=== PATIENT | female | born 1960 | race Caucasian/White ===

== ENCOUNTER 2023-05-04 14:22 | Outpatient (CLI) | payer OTHER, SELFPAY ==
--- NOTE | 2023-05-04 14:40 | MR_ITS ---
WS: [id number] MRI LUMBAR SPINE NONCONTRAST TECHNIQUE: Sagittal T1, T2 and STIR imaging. Axial T1 and T2 imaging. CLINICAL INFORMATION: L SIDE SCIATICA COMPARISON: None. FINDINGS: Mild lumbar curve. No acute compression. Disc bulging worse at L5-S1. L1-L2: Mild annular bulging with narrowing of the RIGHT subarticular recess. Mild facet arthropathy. Mild RIGHT foraminal narrowing. L2-L3: Mild annular bulging with slight narrowing of the RIGHT greater than LEFT subarticular recess. Moderate facet arthropathy. Mild RIGHT foraminal narrowing. L3-L4: Mild annular bulging. Narrowing of the LEFT subarticular recess. Mild central canal stenosis. Mild RIGHT foraminal narrowing. L4-L5: Mild annular bulging. Narrowing of the LEFT greater than RIGHT subarticular recess. Mild centr al canal stenosis. Moderate facet arthropathy. Mild bilateral foraminal narrowing. L5-S1: Central and LEFT paracentral disc protrusion. Impingement on the traversing LEFT greater than RIGHT S1 nerve roots. Moderate facet arthropathy. Mild LEFT foraminal narrowing. Tiny disc protrusion in the cervical spine at C5-6. Small RIGHT renal cyst. IMPRESSION: 1. Mild lumbar curve. No acute compression. 2. Mild central canal stenosis L3-L4 and L4-L5. 3. Central LEFT paracentral disc protrusion L5-S1 impinges the traversing LEFT S1 nerve root. Recomm end correlation LEFT S1 nerve root symptoms. 4. Narrowing of the RIGHT L1-2 and RIGHT L2-3 subarticular recess. 5. Small RIGHT foraminal protrusion L2-3 with mild RIGHT foraminal narrowing. 6. Mild RIGHT L3-4, LEFT L4-5, and LEFT L5-S1 foraminal narrowing. 7. Moderate facet arthropathy L3-L5.
== END 2023-05-04 14:23 | disposition home or self-care (01) ==
PROVIDERS: PCP Family Medicine; Visit Provider Family Medicine
DX: M54.32 Sciatica, left side (principal); M51.26 Other intervertebral disc displacement, lumbar region; M48.02 Spinal stenosis, cervical region; M48.061 Spinal stenosis, lumbar region without neurogenic claudication
CPT/HCPCS: 72148

== ENCOUNTER 2023-06-12 09:35 | Outpatient (CLI) | payer OTHER, SELFPAY ==
[2023-06-12 10:17] LABS: D Dimer 1.14 ug/mLFEU (0-0.59)
--- NOTE | 2023-06-12 14:14 | CT_ITS ---
WS: [id number] CT CHEST ANGIOGRAPHY WITH REFORMATS HISTORY: ELEVATED D DIMER TECHNIQUE: Contiguous axial images are obtained through the chest during arterial injection of intrav enous contrast. Images are reconstructed to evaluate the pulmonary arteries. MIP imaging also reviewe d. All CT scans at [facility] use at least one of these dose optimization techniques: automat ed exposure control; mA and/or kV adjustment per patient size (includes targeted exams where dose is matched to clinical indication); or iterative reconstruction. CONTRAST: Omnipaque 350; 100 mL IV. DLP: 441.59 mGy.cm COMPARISON: None available. Good opacification of the pulmonary arteries. No filling defects or pulmonary emboli are identified. Mild atherosclerosis aorta. No aneurysm. Moderate enlargement of the LEFT heart chambers. Mild tricuspid regurgitation into the IVC. There is mild hazy attenuation throughout the lungs. Lung volumes are decreased. Very small layering RIGHT pleural effusion. No mass or pneumonia. Although not enlarged there are several mediastinal and hilar lymph nodes along with mild edema within the mediastinal fat. Small hiatal hernia. Mildly contracted gallbladder. There is a small amount of edema adjacent to the gallbladder. Patient is not experiencing RIGHT upper quadrant pain. This may be related to patient's liver disease. Mild increase in thoracic kyphosis. No destructive bone lesions. IMPRESSION: 1. No pulmonary embolism. 2. Moderate LEFT heart enlargement with a small RIGHT pleural effusion. 3. Mild interstitial edema. Edema may be related to CHF. 4. Mildly contracted gallbladder with wall thickening and adjacent edema. Some of these changes may b e due to nonfasting patient or hepatocellular disease. In the correct clinical setting acute cholecys titis is not excluded. RIGHT upper quadrant ultrasound would provide additional information if clinic ally thought necessary. Notified DARREL Niño at 06/12/2023 3:49 PM.
== END 2023-06-12 09:36 | disposition home or self-care (01) ==
PROVIDERS: PCP Family Medicine; Visit Provider Nurse Practitioner Family
DX: R79.1 Abnormal coagulation profile (principal); R60.0 Localized edema; I51.7 Cardiomegaly; J90 Pleural effusion, not elsewhere classified; K82.9 Disease of gallbladder, unspecified
CPT/HCPCS: 71275; 85378

== ENCOUNTER 2023-06-22 07:04 | Outpatient (CLI) | payer OTHER, SELFPAY ==
--- NOTE | 2023-06-22 07:18 | USCV_ITS ---
Adri Ruth Age: 62 Gender: F : 1960 Exam Date: 06/22/2023 07:28 Ordering Phys: Shahid Rose MD Technologist: CRISTIAN [place] [facility] [place]: CHRONIC HEART FAILURE BP: 161 / 102 HR: 132 Rhythm: Sinus Technical Quality: Adequate MEASUREMENTS (Male / Female) Normal Values 2D ECHO LVOT Diameter 2.0 cm LV Ejection Fraction MOD 2C 24.0 % LV Ejection Fraction 2C AL 23.5 % LA Diameter 3.8 cm LA Width 3.3 cm LA Height 5.3 cm RA Width 3.8 cm RA Height 5.0 cm Aorta at Sinotubular Diameter 2.5 cm IVC Diameter 1.8 cm M-MODE Aortic Annulus Diameter 3.1 cm LA Ao Ratio MM 1.1 MV E Point Septal Separation 1.5 cm DOPPLER AV Peak Velocity 116.0 cm/s LVOT Peak Velocity 79.0 cm/s AV Area Cont Eq vti 2.4 cm squared AV Area Cont Eq pk 2.2 cm squared MV Peak Velocity 157.0 cm/s MV Area PHT 4.9 cm squared MV E' Velocity 93.8 cm/s Mitral E to MV E' Ratio 16.9 Mitral E to LV E' Lateral Ratio 13.1 Mitral E to LV E' Septal Ratio 24.2 TR Peak Velocity 249.4 cm/s TR Peak Gradient 24.9 mmHg TR Mean Velocity 214.2 cm/s TR Mean Gradient 19.0 mmHg TR Velocity Time Integral 75.5 cm TV Peak E Velocity 88.0 cm/s Right Atrial Pressure 3.0 mmHg Pulmonary Artery Systolic Pressu 27.9 mmHg PV Peak Velocity 71.0 cm/s RV Acceleration Time 0.1 s RV Ejection Time 0.2 s RV AcT/ET 0.2 FINDINGS Left Ventricle Mildly increased left ventricular cavity size. Normal left ventricular wall thickness. Moderately decreased left ventricular systolic function. Left ventricular ejection fraction is estimated at 35 %. Global left ventricular hypokinesis. Grade II/IV diastolic dysfunction, moderately elevated filling pressures. Right Ventricle Normal right ventricular size and systolic function. Normal right ventricular systolic pressure. Right Atrium Mildly increased right atrial size. Left Atrium Mildly increased left atrial size. Mitral Valve Structurally normal mitral valve. Moderate-severe mitral valve regurgitation. Aortic Valve Structurally normal aortic valve without significant sclerosis or stenosis. There is no aortic regurgitation. Tricuspid Valve Structurally normal tricuspid valve. Xbykwfpu-ea-xwscxg tricuspid valve regurgitation. Pulmonic Valve Pulmonic valve not well visualized. Mild pulmonary valve regurgitation. Pericardium Normal pericardium without effusion. Aorta Normal ascending aorta dimension. IVC The inferior vena cava appears normal. CONCLUSIONS Mildly increased left ventricular cavity size. Normal left ventricular wall thickness. Moderately decreased left ventricular systolic function. Left ventricular ejection fraction is estimated at 35 %. Global left ventricular hypokinesis. Grade II/IV diastolic dysfunction, moderately elevated filling pressures. Mildly increased right atrial size. Mildly increased left atrial size. Structurally normal mitral valve. Moderate-severe mitral valve regurgitation. Structurally normal tricuspid valve. Gnpwtsam-[id number]-walmcz tricuspid valve regurgitation. There are no prior echocardiogram studies to compare. Dr. Reagan Alaniz MD (Electronically Signed) Final Date: 22 June 2023 10:04 S
== END 2023-06-22 07:05 | disposition home or self-care (01) ==
LOC: RAD 07:06
PROVIDERS: PCP Family Medicine; Visit Provider Family Medicine
DX: I50.9 Heart failure, unspecified (principal); I51.89 Other ill-defined heart diseases; I34.0 Nonrheumatic mitral (valve) insufficiency; I07.1 Rheumatic tricuspid insufficiency
CPT/HCPCS: 93306; Q9967

== ENCOUNTER → 2023-08-16 12:05 | Outpatient (BNVA) | payer MEDICARE, SELFPAY | PROVIDERS: PCP Family Medicine; Referring Provider Family Medicine; Visit Provider Internal Medicine Cardiovascular Disease | DX: R06.02 Shortness of breath (principal); R07.9 Chest pain, unspecified; I25.5 Ischemic cardiomyopathy; I50.20 Unspecified systolic (congestive) heart failure; I42.9 Cardiomyopathy, unspecified; I50.22 Chronic systolic (congestive) heart failure; I10 Essential (primary) hypertension; F10.10 Alcohol abuse, uncomplicated; I34.0 Nonrheumatic mitral (valve) insufficiency; I07.1 Rheumatic tricuspid insufficiency | CPT/HCPCS: 36415; 80048; 83880; 93005; 99205 ==

== ENCOUNTER 2023-09-04 10:15 | Outpatient (CLI) | payer MEDICARE, SELFPAY ==
[2023-09-04 10:43] VITALS: BMI 29.1
--- NOTE | 2023-09-04 10:44 | ECG_ITS ---
[facility] Test Date: 2023-09-04 Pat Name: Adri Ruth Department: Room: Gender: Female Field Laboratory Operator: Isidra Dawson : 1960 Requested By: Margarita Cummings Order Number: [id number] Medina MD: Huang Sutton M.D. Interpretive Statements NAME OF STUDY: EXERCISE SESTAMIBI STRESS TEST INDICATION: [CHF, ] EXERCISE DATA: The patient was exercised by Faraz protocol. Baseline heart rate was 84 beats per minute. Baseline blood pressure was 162/114 millimeters of mercury. Target heart rate was 132 beats per minute. Maximum heart rate achieved was 136, which was 103 % of the target heart rate. Maximum blood pressure was 193/126 millimeters of mercury. Total exercise time was 4 minutes 57 seconds. Maximum METs achieved was 7. The reason for ending the test was completion of protocol. The patient complained of shortness of breath during the stress test, which then resolved at the end of the test. ELECTROCARDIOGRAM: BASELINE: Showed sinus rhythm, normal axis, no significant ST-T changes at the baseline noted. [] EXERCISE: At the peak exercise level, [] No significant ST-T changes suggestive of ischemia noted. PVCs are seen. Although patient did reach target heart rate however EKG shows maximum heart rate of 129 bpm which is 3 beats lower than target heart rate. [] RECOVERY: During the recovery period, heart rate dropped appropriately. No significant ST-T changes in the recovery suggestive of ischemia noted. [] CONCLUSION: 1. Exercise capacity fair. 2. Heart rate response was appropriate. 3. Blood pressure response was hypertensive. 4. Symptoms not suggestive of ischemia. 5. Electrocardiogram portion of the stress test was not suggestive of ischemia. However EKGs were obtained at 3 beats lower than target heart rate which reduces sensitivity of the test. 6. Nuclear scan will be documented separately. Electronically Signed On 09-10-2023 12:42:52 LABOR CONTRACT ANALYST by Huang Sutton M.D. [email or web address]
--- NOTE | 2023-09-04 10:45 | NMCV_ITS ---
NM ba perf SPECT r/s* [id number] Adri Ruth Age: 63 Gender: F : 1960 Exam Date: 09/04/2023 11:37 Ordering Phys: Margarita Cummings MD ([email or web address]) Technologist: GENA Erazo Exam Location: [facility] Indications: CORONARY ANGIOPLASTY STATUS STRESS TEST Please see separate stress test report in [facility] for full findings IMAGE PROTOCOL Rest/Stress 1 Exercise Day Radiopharmaceutical Dose (mCi) Administration Site Administered by Rest: Tc-99m 10.6 IV GENA Erazo Sestamibi Stress:Tc-99m 32.7 IV GENA Erazo Sestamibi Rest: 04-Sep-2023 60 Discovery 630 Stress: 04-Sep-2023 30 Discovery 630 Radiopharmaceutical was injected at 86 % maximum heart rate. Images obtained in supine and prone position. SPECT RESULTS Technical Quality: Excellent Raw Data Analysis: Normal Image Corrections: No attenuation or motion correction applied Summed Stress Score: 12 Summed Rest Score: 2 Summed Difference Score: 10 PERFUSION FINDINGS Moderate area of moderately decreased tracer uptake involving the mid anterolateral, inferolateral knee basal and mid inferolateral, mid anterolateral, and all the apical segments. Significant reversibility was noted in these regions at rest. FUNCTIONAL RESULTS (calculated via Gated SPECT) Stress Image LV EF (%): 29 Stress EDV (mL):162 TID: 1.04 Stress ESV (mL):115 FUNCTIONAL FINDINGS: Segmental wall motion analysis revealed severe diffuse hypokinesis the inferior wall, apex and moderate hypokinesia of the septum IMPRESSIONS 1. Myocardial perfusion imaging revealing moderate area of moderately decreased tracer uptake involving the inferolateral, anterolateral and apical regions with significant reversibility suggesting ischemia mostly in the distribution of the left circumflex artery and left and descending artery. 2. Diminished LV ejection fraction 29% 3. Multiple wall motion normalities as mentioned above 4. Moderately dilated LV cavity with an end-systolic volume of 115 mL No similar previous studies are available for comparison Dr Margarita Cummings MD FAC (Electronically Signed) Final Date: 04 September 2023 19:10 S
--- NOTE | 2023-09-04 12:37 | PC.NURSE ---
Physician Notified In recovery after exercise mibi BP 160's /120's and maintaining . Physician gave verbal orders to give 10mg IV hydralizine X 1 , december discharge once DBP <110 and instruct patient to take BP medications once home. Pt verbalized understanding.
[2023-09-04] MEDS: hyDRALAzine 20 mg/mL INJ 1 mL 10 MG IVP (12:39)
[2023-09-04 12:48] VITALS: BP 149/107; PULSE 103
--- NOTE | 2023-09-04 13:00 | USCV_ITS ---
Faraz Adri Age: 63 Gender: F : 1960 Exam Date: 09/04/2023 13:44 Ordering Phys: Margarita Cummings MD ([email or web address]) Technologist: JACE Exam Location: [facility] – [place] Indication: limited for Low EF BP: / HR: 94 Rhythm: Sinus Technical Quality: Adequate MEASUREMENTS (Male / Female) Normal Values 2D ECHO LV Diastolic Diameter PLAX 4.4 cm 4.2 - 5.9 / 3.9 - 5.3 cm LV Systolic Diameter PLAX 3.7 cm IVS Diastolic Thickness 1.5 cm 0.6 - 1.0 / 0.6 - 0.9 cm IVS Systolic Thickness 1.6 cm LVPW Diastolic Thickness 1.0 cm 0.6 - 1.0 / 0.6 - 0.9 cm LVPW Systolic Thickness 2.0 cm LVOT Diameter 2.2 cm LV Ejection Fraction 2D Teich 32.1 % LV Ejection Fraction MOD 2C 38.1 % LV Ejection Fraction 2C AL 35.5 % LA Diameter 3.8 cm LA Width 2.9 cm LA Height 4.8 cm RA Width 2.7 cm RA Height 4.6 cm Aorta at Sinotubular Diameter 3.1 cm IVC Diameter 1.6 cm M-MODE Aortic Annulus Diameter 3.5 cm LA Ao Ratio MM 1.0 MV E Point Septal Separation 2.0 cm FINDINGS Left Ventricle Diffuse hypokinesia of the left ventricle with ejection fraction of 35.5%. Mildly dilated LV cavity Right Ventricle Normal RV size and ejection fraction Right Atrium Normal size Left Atrium Mildly increased left atrial size. Mitral Valve Moderate mitral regurgitation Aortic Valve Trace of aortic regurgitation Tricuspid Valve No gross abnormalities noted Pulmonic Valve Pulmonic valve not well visualized. Pericardium No pericardial effusion. Aorta Normal aortic annulus size. IVC Inferior vena cava not visualized. CONCLUSIONS Diffuse hypokinesia of the left ventricle with ejection fraction of 35.5%. Mildly dilated LV cavity Mildly increased left atrial size. Trace of aortic regurgitation. Moderate mitral regurgitation. There is no pericardial effusion. There are no intracardiac masses. Compared to the study from 06/22/2023, there may not be significant change in the LV ejection fraction Dr Margarita Cummings MD [facility] (Electronically Signed) Final Date: 04 September 2023 19:16 S
== END 2023-09-04 10:16 | disposition home or self-care (01) ==
PROVIDERS: PCP Family Medicine; Visit Provider Internal Medicine Cardiovascular Disease
DX: I11.0 Hypertensive heart disease with heart failure (principal); I50.9 Heart failure, unspecified; R94.39 Abnormal result of other cardiovascular function study; Z98.61 Coronary angioplasty status
CPT/HCPCS: 36415; 78452; 93017; 93308; A9500; J0360

== ENCOUNTER 2023-09-21 15:11 | Outpatient (CLI) | payer MEDICARE, SELFPAY | END 2023-09-21 15:12 | disposition home or self-care (01) | LOC: LAB 15:13 | PROVIDERS: PCP Family Medicine; Visit Provider Internal Medicine | DX: I08.1 Rheumatic disorders of both mitral and tricuspid valves (principal); I42.9 Cardiomyopathy, unspecified; R58 Hemorrhage, not elsewhere classified | CPT/HCPCS: 36415; 80048; 85025; 85610 ==

== ENCOUNTER 2023-09-22 05:57 | Outpatient (CLI) | payer MEDICARE, SELFPAY ==
--- NOTE | 2023-09-22 06:00 | XACV_ITS ---
Exam Room: 2 Ht: 168 cm Wt: 82 kg BSA: 1.97 m2 Gender: Female : 1960 Any Known Allergies: No known allergies Exam Priority: Routine Procedure(s): Procedure Description: Diagnostic procedure Procedure Description: Left Heart Catheterization Procedure Description: Left ventriculography Procedure Description: Coronary Angiography Diagnostic Cath Status: Elective Diagnostic Findings * INDICATION: LV dysfunction/abnormal stress test. * No significant disease noted in the Left Main, Left Anterior Descending, Right, or Circumflex coronary arteries. * Coronary angiography shows right dominance. Conclusions 1. No significant disease noted in the Left Main, Left Anterior Descending, Right, or Circumflex coronary arteries. 2. Non-ischemic cardiomyopathy. 3. Moderate left ventricular systolic dysfunction. Ejection fraction of 35%. Recommendations * Aggressive risk factor modification. * Guideline directed medical therapy for heart failure. * Outpatient cardiology follow up in 2-4 weeks. Interventional RX Recommendation: medical therapy and/or counseling Diagnostic RX Recommendation: medical therapy and/or counseling Ventriculography Ejection Fraction: 35.0 % Pressures Phase:Rest AO : 157 / 98 ( 120 ) @ 8:00:00 AM 192 / 85 ( 116 ) @ 8:03:00 AM 145 / 80 ( 106 ) @ 8:07:00 AM 146 / 79 ( 107 ) @ 8:07:00 AM LV : 151 / 4 / 15 @ 8:06:00 AM 152 / 5 / 21 @ 8:07:00 AM 151 / 6 / 20 @ 8:07:00 AM Valves Phase:DefaultPhase AV : 6.0 @ 8:18:31 AM 6.0 @ 8:18:31 AM AV Mean Gradient: 11.0 @ 8:18:31 AM Clinical Evaluation EBL: 5mL-10mL Procedural Details Procedure Consent Obtained. Admit Source: Out Patient. Pre-Procedure Time Out. Identified patient by full name and date of as verbalized by the patient/guarantor. Does the consent match the physician's order: Yes. Accurate & Complete Informed Consent: Yes. Inpatient/Outpatient History & Physical on Chart: Yes. If H&P is completed, is and addenduem needed: Yes; If yes, is the addendum complete: N/A. Visualize and Verify Site with Patient/Guarantor: N/A. Relevant Radiology Images available: N/A. The risks, benefits, and alternatives of sedation and/or procedure were discussed by physician. The patient agrees to continue. Procedure started. [facility] Clinical Fraility Score: 3: Managing Well. 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 Correct patient, site and procedure confirmed by cath team. Current diagnosis: LV dysfunction, abnormal stress test. PERRLA. Strong, equal hand casino assistant manager bilaterally. Lungs clear x 5 lobes. IV Site on Arrival: 20 gauge in the right forearm. IV Fluids: 0.9% NaCl at 75ml/hr. 0 mL infused prior to engineering lab technician. Pre Procedural Pulses: bilateral dorsalis pedis was Doppled. Pre Procedural Pulses: bilateral posterior tibial was 2+. Pre Procedural Pulses: bilateral radial was 3+. Oxygen started at 2liters/min via nasal canula. right radial was prepped with chloroprep then draped in the usual sterile fashion. right groin was prepped with chloroprep then draped in the usual sterile fashion. Physician notified. Baseline sample Acquired. HR: 73 BPM. Physician arrived. Physician scrubbed in. Immediate Pre-Procedure Time Out. Correct Patient: Yes; Correct Procedure: Yes; Correct Site: Yes; Correct Patient Position: Yes; Correct Supplies: Yes; Dried Flammable Prep: Yes; Blood Products Available: No;. Lidocaine 1% infiltrated to the right radial. An attempt to gain access to the right radial artery was unsuccessful. Manual pressure was held as needed to stop the bleeding. Ultrasound obtained to assist with arterial access. An attempt to gain access to the right radial artery was unsuccessful. Manual pressure was held as needed to stop the bleeding. Unable to obtain radial access. attempting to gain access in the Femoral artery. Lidocaine 1% infiltrated to the right groin. Arterial access obtained with micropuncture set. A 5 senegalese JL4 catheter in over wire. Multiple views taken of left coronary artery. Catheter removed over the standard wire. A 5 senegalese JR4 catheter in over wire. Multiple views taken of right coronary artery. Catheter removed over the standard wire. A 5 senegalese Angled Pig catheter in over wire. EDP Sample taken: LV 151/4,15; HR: 67 BPM; SpO2: 100%. LV gram performed in LOPEZ @ 10 mL/second for a total of 30 mL. EDP Sample taken: LV 152/5,21; HR: 71 BPM; SpO2: 100%. Pullback taken: LV 151/6,20; AO 145/80(106); Mean: 11mmHg, Peak to Peak: 6mmHg, SEP: 19sec/min; HR: 69 BPM; SpO2: 100%. Catheter removed over the standard wire. A Right femoral angiogram was performed to determine safe placement of closure device. Lidocaine 1% infiltrated to the right groin. A Angio-Seal VIP ([facility] [facility]) was successful obtaining hemostatsis at the Right Femoral artery insertion site. EXP 03-29-2024 LOT # [id number]. Post Procedure: Pulses reassessed and unchanged. PERRLA. Strong, equal hand casino assistant manager bilaterally. No VTE prophylaxis required. Medication's Wasted: Lidocaine 1% = 4 mL. Medication's Wasted: Nitro = 50 mg. Medication's Wasted: Heparin = 1000 units. Medication's Wasted: Other = Fentanyl 50mcg Versed 1 mg. Total IV fluids: 50 mL. Post-op diagnosis: Non-ischemic cardiomyopathy, Non obstructive CAD. Complications: None. Estimated blood loss: 5mL-10mL. Responsiveness - Normal response to verbal stimuli; alert and oriented, PERRLA. Airway - Unaffected, no intervention required; spontaneous ventilation. Circulation: W/N/L, pulses unchanged. Nausea/Vomiting: No. Procedure completed. Patient transferred by bed to CPRU. Vital chart was stopped. Access Site Site: Right Femoral artery Sheath Size: 6 Fr Hemostasis Method: Angio-Seal VIP ([facility] [facility]) Hemostasis Success: Successful Procedure Medications Start: 7:38 AM Stop: 7:38 AM Medication: Versed Amount: 1 mg Route: I.V. Start: 7:39 AM Stop: 7:39 AM Medication: Fentanyl Amount: 25 mcg Route: I.V. Start: 7:53 AM Stop: 7:53 AM Medication: Fentanyl Amount: 25 mcg Route: I.V. I, the attending physician, have reviewed and verified all procedure medications. Yes, all medications given per verbal order History/Risk Factors Hypertension: Yes Dyslipidemia: No Peripheral Arterial Disease (PAD): No Myocardial Infarction (VT): No Obesity: No Renal Disease: No Tobacco Use: Never Prior Interventions PCI: No CABG: No Valve Surgery: No Report Signatures Finalized by Huang Sutton MD on 10/01/2023 11:01 AM
[2023-09-22] MEDS: diphenhydrAMINE 50 mg Capsule PO (06:11)
[2023-09-22] MEDS: aspirin 325 mg Tablet PO (06:11)
[2023-09-22 06:29] VITALS: BP 155/109; PULSE 72; RESP 16; TEMP 37; O2SAT 97
--- NOTE | 2023-09-22 07:28 | W.PM.OPSFHP ---
Same Day Surgery H&P Indication for Procedure/HPI DATE OF PROCEDURE: September 22, 2023 CHIEF COMPLAINT/INDICATIONFOR SURGICAL PROCEDURE: LV dysfunction/abnormal stress test PREOP DIAGNOSIS: LV dysfunction/abnormal stress test PLANNED PROCEDURE: Operation Date: 09/22/23 07:[address] [facility] [id number],R94.39(Left) - Huang Sutton M.D Possible percutaneous coronary intervention 63-year-old woman with past medical history of alcohol use, mitral regurgitation who has recently discovered LV dysfunction. She was admitted in [place] for a CHF exacerbation. Her LV systolic function is moderate to severely low with EF of 35%. Stress test was performed that was abnormal. Plan for coronary angiogram with possible PCI. Medications/Allergies* Home Medications Medication Instructions Recorded Confirmed Type furosemide 40 mg tablet (Lasix) 40 mg PO DAILY 08/16/23 09/20/23 History potassium chloride 20 mEq 20 meq PO DAILY 08/16/23 09/20/23 History tablet,extended release Allergies/Adverse Reactions Allergy/AdvReac Type Severity Reaction Status Date / Time No Known Allergies Allergy Verified 09/22/23 06:39 Current Medications: Generic Name Dose Route Start Last Admin Trade Name Freq PRN Reason Stop Dose Admin Sodium Chloride 1,000 mls @ 50 mls/hr 09/22/23 06:00 09/22/23 06:11 Sodium Chloride 0.9% IV 09/23/23 01:59 Not Given .Q20H ONE Pertinent History/Comorbid Conditions* Medical History (Updated 08/16/23 @ 12:45 by Margarita Cummings MD) Hx of primary hypertension Social History Smoking and tobacco/nicotine status: never used tobacco/nicotine Pertinent Exam Findings alert, oriented x 3, clear to auscultation bilaterally and regular rate & rhythm Conscious Sedation Assessment PATIENT ASSESSED PRIOR TO SEDATION, WITH NO CHANGE NOTED: Yes AIRWAY EVAL/ANESTHESIA PLAN: normal airway, ASA III, Local Anesthesia, Risks, benefits & alternatives of sedation and/or procedure discussed and Patient agrees to continue as planned ADDITIONAL INFORMATION: Moderate sedation Recommendations Surgery/Procedure today (Left heart cath with percutaneous coronary intervention) Coding Level of Care Code Acute Code for Alina Fwd
[2023-09-22 08:20] VITALS: BP 149/95; PULSE 67; RESP 13; O2SAT 97
--- NOTE | 2023-09-22 08:20 | SUR.EXTENDED ---
Received the patient back from the laborer pie bakery via bed s/p Diagnostic [facility]. Patient drowsy. Awakens to verbal stimuli. A & 0 x 3. supervisor phosphoric acid placed and vital signs obtained. 6 Yi sheath sutured in the right groin to pressure bag. No bleeding or hematoma noted. Dressing D/I. No other assessment changes noted from pre cath assessment. Will transfer to room [ ] after recovery. Family at bedside. No concerns voiced at this time.
--- NOTE | 2023-09-22 08:20 | SUR.EXTENDED ---
Received the patient back from the open hearth laborer via bed s/p Diagnostic [facility]. Patient drowsy. Awakens to verbal stimuli. A & 0 x 3. cylinder dyer placed and vital signs obtained. Patient s/p Angioseal closure device. Dressing to right groin dry and intact. No bleeding or hematoma noted. The right wrist was accessed but unable to use. A pressure dressing was applied in the open hearth laborer. This dressing was taken off and the area was cleansed with water and patted dry. Then a large band aid was applied to the site. Wrist soft with no bleeding or hematoma noted. Palpable radial pulse present. Post activity restrictions were given to the patient with her understanding voiced. No other assessment changes noted from pre cath assessment. Will transfer to room 106 after recovery. Family at bedside. No concerns voiced at this time. Report was called to the receiving nurse by James Mcmanus RN.
[2023-09-22 08:30] VITALS: BP 139/90; PULSE 75; RESP 18; O2SAT 93
--- NOTE | 2023-09-22 09:09 | PC.NURSE ---
Patient arrived to [facility] from [facility] at 0900. Patient is alert and oriented. Patient is resting in bed. R groin site looks good, clean dry and intact. Right wrist where first attempt was made also looks good. No hematoma or bleeding present at this time. Nurse will continue to monitor. Patient is aware of activity restrictions and bed rest until 1230.
[2023-09-22 10:18] VITALS: BP 156/94; PULSE 81; RESP 17; TEMP 36.4; O2SAT 90
[2023-09-22 13:14] VITALS: BP 156/94; PULSE 81; RESP 17; TEMP 36.4; O2SAT 90
== END 2023-09-22 13:14 | disposition home or self-care (01) ==
LOC: CCL 06:00 → CSU 09:21
PROVIDERS: PCP Family Medicine; Visit Provider Internal Medicine
DX: R94.39 Abnormal result of other cardiovascular function study (principal); I42.9 Cardiomyopathy, unspecified; I10 Essential (primary) hypertension; I50.1 Left ventricular failure, unspecified
CPT/HCPCS: 93458; 99152; 99153; C1760; C1769; C1887; C1894; G0378; J1644; J2250; J3010; J3490; J7030; Q0163; Q9967

== ENCOUNTER → 2023-10-19 08:52 | Outpatient (BNVA) | payer MEDICARE, SELFPAY | PROVIDERS: PCP Family Medicine; Visit Provider Nurse Practitioner Family | DX: I11.0 Hypertensive heart disease with heart failure (principal); I50.22 Chronic systolic (congestive) heart failure; I34.0 Nonrheumatic mitral (valve) insufficiency | CPT/HCPCS: 36415; 80048; 83880; 99214 ==

== ENCOUNTER 2024-01-22 11:42 | Outpatient (CLI) | payer MEDICARE, SELFPAY ==
--- NOTE | 2024-01-22 12:00 | USCV_ITS ---
Adri Ruth Age: 63 Gender: F : 1960 Exam Date: 01/22/2024 12:00 Ordering Phys: Olivia Aviles Technologist: CT [place] [facility] [place]ication: CHRONIC HEART FAILURE BP: 142 / 93 HR: 70 Rhythm: Sinus Technical Quality: Adequate MEASUREMENTS (Male / Female) Normal Values 2D ECHO LVOT Diameter 2.0 cm LV Ejection Fraction MOD 2C 56.2 % LV Ejection Fraction 2C AL 61.0 % LA Diameter 4.3 cm RA Systolic Volume 4C AL 30.0 ml RA Systolic Volume 4C MOD 28.7 ml LA Sys Volume AL 44.3 cm cubed LA Sys Volume Index AL 22.5 cm cubed/m squared Aorta at Sinotubular Diameter 2.6 cm IVC Diameter 1.9 cm M-MODE LA Ao Ratio MM 1.8 AV Cusp Separation MM 2.0 cm DOPPLER AV Peak Velocity 116.0 cm/s LVOT Peak Velocity 74.0 cm/s AV Area Cont Eq vti 2.3 cm squared AV Area Cont Eq pk 2.1 cm squared MV Peak Velocity 109.0 cm/s MV Area PHT 3.7 cm squared Mitral E to A Ratio 0.5 TR Peak Velocity 98.0 cm/s TR Peak Gradient 3.8 mmHg TV Peak E Velocity 63.0 cm/s Right Atrial Pressure 3.0 mmHg Pulmonary Artery Systolic Pressu 6.8 mmHg PV Peak Velocity 83.0 cm/s FINDINGS Left Ventricle Normal left ventricular size, systolic function and wall thickness, with no regional wall motion abnormalities. Normal left ventricular wall thickness. Left ventricular ejection fraction is estimated at 60 %. Grade I/IV diastolic dysfunction (abnormal relaxation filling pattern), normal to mildly elevated filling pressures. Right Ventricle The right ventricle is normal in size and function. Right Atrium The right atrium is normal in size. Left Atrium Mildly increased left atrial size. Mitral Valve Moderately thickened mitral valve. Moderate mitral valve regurgitation. Aortic Valve Moderate aortic valve calcification. No aortic valve stenosis. Trace aortic valve regurgitation. Tricuspid Valve Structurally normal tricuspid valve without significant stenosis or regurgitation. Pulmonary artery systolic pressure is normal. Pulmonic Valve Structurally normal pulmonic valve without significant stenosis. There is no pulmonic regurgitation. Pericardium Normal pericardium without effusion. Aorta Normal ascending aorta dimension. IVC The inferior vena cava appears normal. CONCLUSIONS 1-Normal left ventricular size, systolic function and wall thickness, with no regional wall motion abnormalities. Normal left ventricular wall thickness. Left ventricular ejection fraction is estimated at 60 %. Grade I/IV diastolic dysfunction (abnormal relaxation filling pattern), normal to mildly elevated filling pressures. 2-Moderately thickened mitral valve. Moderate mitral valve regurgitation. 3-There is no pericardial effusion. 4-Right atrial pressure is around 5 mm of mercury. Bindu Chang MD (Electronically Signed) Final Date: 23 January 2024 19:04 S
== END 2024-01-22 11:43 | disposition home or self-care (01) ==
LOC: RAD 11:43
PROVIDERS: PCP Family Medicine; Visit Provider Nurse Practitioner Family
DX: I34.0 Nonrheumatic mitral (valve) insufficiency (principal); I50.22 Chronic systolic (congestive) heart failure; I70.0 Atherosclerosis of aorta
CPT/HCPCS: 93306

== ENCOUNTER → 2024-06-11 14:00 | Outpatient (BNVA) | payer MEDICARE, SELFPAY | PROVIDERS: PCP Family Medicine; Visit Provider Internal Medicine Cardiovascular Disease | DX: R06.02 Shortness of breath (principal); I42.9 Cardiomyopathy, unspecified; I11.0 Hypertensive heart disease with heart failure; I50.22 Chronic systolic (congestive) heart failure; I08.1 Rheumatic disorders of both mitral and tricuspid valves | CPT/HCPCS: 99214 ==

== ENCOUNTER 2024-09-10 10:21 | Outpatient (CLI) | payer MEDICARE, SELFPAY ==
--- NOTE | 2024-09-10 10:35 | CTR_ITS ---
PROCEDURE INFORMATION: Exam: CT Temporal Bones Without Contrast. Exam date and time: 09/10/2024 10:37 AM Age: 64 years old Clinical indication: Condition or disease; Prior surgery; Surgery date: 6+ months; Other benign neoplasm skin/left ear and external auric canal, had a hole in left ear fix 20 years ago TECHNIQUE: Imaging protocol: Computed tomography of the temporal bones without contrast. Radiation optimization: All CT scans at this facility use at least one of these dose optimization techniques: automated exposure control; mA and/or kV adjustment per patient size (includes targeted exams where dose is matched to clinical indication); or iterative reconstruction. COMPARISON: No relevant prior studies available. RADIATION DOSE METRICS: Total DLP (mGy-cm): 336.19 FINDINGS: Right inner ear: There is sclerosis of the right semicircular canal and cochlea Right ossicles and middle ear: Complete opacification of the right middle ear cavity. . Right external auditory canal: Normal. Right facial nerve canal: Normal. Right jugular foramen: No jugular dehiscence. Right carotid canal: No aberrant carotid canal. Right mastoid air cells: Under pneumatization of the mastoid air cells. Left inner ear: There is sclerosis of the semicircular canals and cochlea Left ossicles and middle ear: Postop resection change of the left external auditory canal and middle ear cavity. Left external auditory canal: Post resection change with soft tissue density Left facial nerve canal: Normal. Left jugular foramen: No jugular dehiscence. Left carotid canal: No aberrant carotid canal. Left mastoid air cells: Under pneumatization. Soft tissues: Unremarkable. CT/CT temporal bone wo con* [id number] IMPRESSION: 1. Postop surgical resection changes in the left external auditory canal and middle ear cavity. Soft tissue density resides within the resection site. 2. Retraction of the tympanic membrane with near complete opacification of the right middle ear cavity. Sclerosis of the right semicircular canals and cochlea.
== END 2024-09-10 10:22 | disposition home or self-care (01) ==
LOC: RAD 10:28
PROVIDERS: PCP Family Medicine; Visit Provider Otolaryngology
DX: D23.22 Other benign neoplasm of skin of left ear and external auricular canal (principal); H91.93 Unspecified hearing loss, bilateral; Z98.890 Other specified postprocedural states; R93.89 Abnormal findings on diagnostic imaging of other specified body structures
CPT/HCPCS: 70480

== ENCOUNTER → 2024-12-04 13:51 | Outpatient (BNVA) | payer MEDICARE, SELFPAY | PROVIDERS: PCP Family Medicine; Visit Provider Podiatrist Foot & Ankle Surgery | DX: L60.3 Nail dystrophy (principal); Z86.19 Personal history of other infectious and parasitic diseases | CPT/HCPCS: 99204 ==

== ENCOUNTER → 2025-02-19 13:14 | Outpatient (BNVA) | payer MEDICARE, SELFPAY | PROVIDERS: PCP Nurse Practitioner Family; Visit Provider Specialist | DX: M65.342 Trigger finger, left ring finger (principal) | CPT/HCPCS: 73130; 99204 ==

== ENCOUNTER 2025-03-11 16:10 | Outpatient (CLI) | payer MEDICARE, SELFPAY ==
[2025-03-11 17:16] LABS: Glucose Urine UA Negative (Normal); Nitrate Urine Positive (Negative); Specific Gravity, Urine 1.024 (1.005-1.030)
[2025-03-11 17:17] LABS: Hematocrit 44.6 % (36-47); Hemoglobin 14.50 g/dL (11.27-16.99); Mean Corpuscular HGB Conc 32.5 g/dL (30-55); Mean Corpuscular Hemoglobin 29.7 pg (27-33); Mean Corpuscular Volume 91.4 fl (85-98); Nucleated Red Blood Cells % 0 %; Platelet Count 240 10^3/cmm (157-399); Red Blood Count 4.88 10^6/uL (3.85-5.65); White Blood Count 7.62 10^3/uL (3.29-11.43)
[2025-03-11 17:19] LABS: Add Urine Microscopic? YES
[2025-03-11 18:09] LABS: Alanine Aminotransferase 9 U/L (0-33); Albumin Level 4.1 g/dL (3.5-5.2); Alkaline Phosphatase 101 U/L (35-105); Anion Gap 16.8 (5-19); Aspartate Amino Transferase 12 U/L (0-32); Blood Urea Nitrogen 16 mg/dL (8-23); Calcium 9.1 mg/dL (8.5-10.5); Carbon Dioxide 22 mmol/L (22-29); Chloride 108 mmol/L (98-107); Globulin 3.1 g/dL (1.3-4.6); Glucose 104 mg/dL (65-115); Osmolality Calculated 297 mOsm/kg (285-295); Potassium 3.8 mmol/L (3.5-5.1); Sodium 143 mmol/L (136-145); Total Protein 7.2 g/dL (6.6-8.7)
== END 2025-03-11 16:11 | disposition home or self-care (01) ==
PROVIDERS: PCP Nurse Practitioner Family; Visit Provider Specialist
DX: Z01.818 Encounter for other preprocedural examination (principal)
CPT/HCPCS: 36415; 80053; 81001; 85025

== ENCOUNTER → 2025-03-18 08:58 | Outpatient (BNVA) | payer MEDICARE, SELFPAY | PROVIDERS: PCP Nurse Practitioner Family; Visit Provider Family Medicine | DX: L60.8 Other nail disorders (principal); L60.3 Nail dystrophy; Z86.19 Personal history of other infectious and parasitic diseases | CPT/HCPCS: 93005; 99213 ==

== ENCOUNTER → 2025-04-04 09:03 | Outpatient (BNVA) | payer MEDICARE, SELFPAY | PROVIDERS: PCP Nurse Practitioner Family; Visit Provider Family Medicine | DX: Z01.818 Encounter for other preprocedural examination (principal); R94.31 Abnormal electrocardiogram [ECG] [EKG] | CPT/HCPCS: 93005 ==

== ENCOUNTER 2025-04-10 07:03 | Day surgery (SDC) | payer MEDICARE, SELFPAY ==
[2025-04-10] VITALS (14 sets, daily range): BP systolic 141–169; BP diastolic 85–115; PULSE 73–87; RESP 15–20; TEMP 36.3–37.2; O2SAT 92–97
--- NOTE | 2025-04-10 07:14 | ANES.PREANE2 ---
Pre-Anesthetic Assessment Height/Weight: Height 1.65 m Weight 89.811 kg O2 Del Method Room Air 04/10/25 07:12 Operation Date: 04/10/25 08:40 Proposed Procedures p LEFT RING FINGER TRIGGER FINGER RELEASE(Left) - Holly Rivera MD Familial anesthetic complications: PONV Was Beta Otoniel taken within 24 hours: N/A Was Clonidine taken within 24 hours: N/A Last intake: > 8 hrs Social No alcohol and No tobacco hx of etoh Exam alert, oriented x 3, clear to auscultation bilaterally and regular rate & rhythm Airway Mallampati: Class II Dentition: full CV/HEM Congestive Heart Failure (EF 60%) and Hypertension Hepatic Hep C TVR and MVR GI Gastroesophageal Reflux Disease Anesthetic Plan ASA status: 4 Anesthesia: General Risk of > 500 ml blood loss (7ml/kg in children): No Medications/Allergies Home Medications ?Medication ?Instructions ?Recorded ?Confirmed ?Last Taken ?Type furosemide 40 mg tablet (Lasix) 40 mg PO DAILY 08/16/23 04/09/25 04/09/25 09:00 History potassium chloride 20 mEq 20 meq PO DAILY 08/16/23 04/09/25 04/09/25 09:00 History tablet,extended release sacubitril 97 mg-valsartan 103 mg 1 tab PO BID #180 tabs 09/26/24 04/09/25 04/09/25 09:00 Rx tablet (Entresto) omeprazole 20 mg capsule,delayed 20 mg PO DAILY 12/04/24 04/09/25 04/09/25 09:00 History release amlodipine 5 mg tablet 5 mg PO DAILY #30 tabs 04/09/25 04/09/25 04/09/25 09:00 Rx carvedilol 12.5 mg tablet 12.5 mg PO BID 04/09/25 04/09/25 04/09/25 09:00 History Allergies Allergy/AdvReac Type Severity Reaction Status Date / Time No Known Allergies Allergy Verified 04/04/25 09:29 [facility] Anesthesia Medical History Hx of primary hypertension Social History Smoking and tobacco/nicotine status: never used tobacco/nicotine Data Anesthesia Cardiac Studies: Echocardiogram 01/22/24 Echocardiogram Limited Views 09/04/23 Sestamibi Stress Test (Cardiology) 09/04/23
[2025-04-10] MEDS: acetaminophen 1,000 MG/100 ML PIGGYBACK 400 MG IV (07:36)
--- NOTE | 2025-04-10 08:23 | W.PM.OPSUD ---
Surgery/Procedure H&P Update DATE OF PROCEDURE: April 10, 2025 DATE H&P PERFORMED: 04/04/25 H&P UPDATE INFORMATION: I have reviewed H&P completed within last 30 days, I have examined patient prior to procedure, No changes to prior documentation, H&P is in [facility] EMR on date indicated and Risks and benefits of the procedure reviewed PLANNED PROCEDURE: Operation Date: 04/10/25 08:40 Proposed Procedures p LEFT RING FINGER TRIGGER FINGER RELEASE(Left) - Holly Rivera MD Related Problem List Diagnoses 1. Trigger ring finger of left hand:
[2025-04-10] MEDS: ceFAZolin 2,000 mg SDV 2000 MG IVP (08:40)
[2025-04-10] MEDS: BUPivacaine 0.5% INJ 30 mL XX (09:13)
--- NOTE | 2025-04-10 09:27 | P.OP_ITS ---
Operative Report Date of procedure: April 10, 2025 Pre-op diagnosis: Trigger finger left ring finger Post-op diagnosis: Trigger finger left ring finger Post-op findings: Scarring and significant compression and inflammation of the flexor tendons Procedure done: Release left ring finger trigger finger Implants: None Specimens removed/disposition: None Pathology: None Surgeon: Holly Rivera MD Turning Sander Tender: None Anesthesia: General (Per LMA, ASA 4) Estimated blood loss (mL): 1 Tourniquet time (min): 16 (@ 250 mmHg) IV fluids (mL): 500 Urine output (mL): 0 (No Pablo) Complications: None Findings: Scarring and significant fibrotic changes over the palmar flexor tendons. Tight A1 leland. Condition: stable Disposition: PACU (Then return to same-day surgery for discharge to home) Brief History: This 64-year-old woman presented today with complaints of difficulty with the ring finger of the left hand. The finger would get stuck . When she was seen in the office, she had findings consistent with trigger finger. After discussion, the patient wished to proceed with operative intervention in the form of a trigger finger release. Procedure: Patient was brought to the operating theater. She was placed on the operating room table. General anesthesia per LMA, ASA 4, was administered uneventfully. A tourniquet was placed high on the arm and was elevated to 250 mmHg following exsanguination. Tourniquet time was 16 minutes. Surgical pause was performed prior to commencement of the surgical procedure. At the time of the surgical pause we identified the site and side of surgery. We also identified the patient's identity and appropriate administration of IV antibiotics, Ancef 2 g. Following the surgical pause, an incision was made along the distal palmar crease beneath the ring fingers. Dissection continued through the skin to the subcutaneous tissues using a scalpel. Blunt dissection was then utilized to spread soft tissues and allow access to the A1 leland. It was then incised longitudinally and sharply using a knife. This was accomplished without difficulty and atraumatically. Once the A1 leland was released, attention was directed more proximally in the palm. The patient had some fibrotic changes overlying the tendon and there was erythema in the tendon of this area. This was released as well. Following this, tendons were brought up out of the wound and evaluated. There were no gross masses on the tendons. Tendons were returned to normal position. We then irrigated the wound and subsequently closed it with 3-0 nylon with an interrupted mattress type suture. Following closure of the wound, the wound was injected with bupivacaine plain into the subcutaneous tissues as a local anesthetic. Sterile dressing was then placed consisting of Dermabond, OpSite, fluffed fluffs, sterile soft roll, and an Bill wrap. The patient was returned to recovery in satisfactory condition. She will be discharged home to follow-up with me in the office. There were no complications and no specimens. Related Problem List Diagnoses 1. Trigger ring finger of left hand:
[2025-04-10] MEDS: ondansetron 2 mg/ML SDV 2 mL 4 MG IVP (10:03)
--- NOTE | 2025-04-10 11:05 | ANE.PACU2 ---
Inpatient post-anesthesia follow up: Airway intact: Yes Vital signs: Temperature 97.3 F Pulse Rate 73 Respiratory Rate 16 Blood Pressure 161/101 Pulse Oximetry 96 Oxygen Delivery Me thod Room Air Oxygen Flow Rate 6 Fraction of Inspir ed Oxygen Hydration adequate: Yes Nausea and vomiting: No Pain level: 1 Mental status: Baseline
== END 2025-04-10 11:03 | disposition home or self-care (01) ==
PROVIDERS: PCP Nurse Practitioner Family; Visit Provider Specialist
PROC: (CPT 26055; principal; 2025-04-10 08:40)
DX: M65.342 Trigger finger, left ring finger (principal); K21.9 Gastro-esophageal reflux disease without esophagitis; I13.0 Hypertensive heart and chronic kidney disease with heart failure and stage 1 through stage 4 chronic kidney disease, or unspecified chronic kidney disease; N18.30 Chronic kidney disease, stage 3 unspecified; I50.9 Heart failure, unspecified; I42.9 Cardiomyopathy, unspecified; I08.1 Rheumatic disorders of both mitral and tricuspid valves; E78.5 Hyperlipidemia, unspecified
CPT/HCPCS: 26055; J0131; J0690; J2003; J2250; J2405; J3010; J3490; J7030; J9999

== ENCOUNTER → 2025-04-23 08:54 | Outpatient (BNVA) | payer MEDICARE, SELFPAY | PROVIDERS: PCP Nurse Practitioner Family; Visit Provider Specialist | DX: Z98.890 Other specified postprocedural states (principal) | CPT/HCPCS: 99024 ==

== ENCOUNTER → 2025-04-24 15:32 | Outpatient (BNVA) | payer MEDICARE, SELFPAY | PROVIDERS: PCP Nurse Practitioner Family; Visit Provider Internal Medicine Cardiovascular Disease | DX: I11.0 Hypertensive heart disease with heart failure (principal); I50.20 Unspecified systolic (congestive) heart failure; I08.1 Rheumatic disorders of both mitral and tricuspid valves; R25.2 Cramp and spasm | CPT/HCPCS: 99214 ==

== ENCOUNTER → 2025-06-23 14:07 | Outpatient (BNVA) | payer MEDICARE, SELFPAY | PROVIDERS: Visit Provider Podiatrist Foot & Ankle Surgery | DX: E11.8 Type 2 diabetes mellitus with unspecified complications (principal); L60.3 Nail dystrophy; L60.8 Other nail disorders; Z86.19 Personal history of other infectious and parasitic diseases | CPT/HCPCS: 99213 ==

== ENCOUNTER 2025-08-04 10:03 | Outpatient (CLI) | payer MEDICARE, SELFPAY ==
--- NOTE | 2025-08-04 10:09 | CTR_ITS ---
PROCEDURE INFORMATION: Exam: CT Temporal Bones Without Contrast. Exam date and time: 08/04/2025 10:37 AM Age: 65 years old Clinical indication: Prior surgery; Surgery date: 6+ months; Surgery type: Left ear drum removed; Hearing loss in right ear with ear infections x 6 mths, complete hearing loss in left/ear drum removed; Additional info: Mixed conductive and sensorineural hearing loss TECHNIQUE: Imaging protocol: Computed tomography of the temporal bones without contrast. Radiation optimization: All CT scans at this facility use at least one of these dose optimization techniques: automated exposure control; mA and/or kV adjustment per patient size (includes targeted exams where dose is matched to clinical indication); or iterative reconstruction. COMPARISON: CT temporal bone wo con* [id number] 09/10/2024 10:37 AM RADIATION DOSE METRICS: Total DLP (mGy-cm): 307.3 FINDINGS: Right inner ear: Inner ear structures including the cochlea and semicircular canals are unremarkable. Right ossicles and middle ear: Partial opacification of the middle ear cavity. The incus and malleus appear to be intact. The stapes is not well seen. Opacification particularly within the hypotympanum is improved since prior CT scan. Right external auditory canal: Normal. Right facial nerve canal: Normal. Right jugular foramen: Stable high-riding jugular bulb with thinning of the sigmoid plate but without obvious jugular bulb dehiscence. Right carotid canal: No aberrant carotid canal. Right mastoid air cells: Stable sclerosis of the right mastoid air cells compatible with chronic mastoid disease. Opacification of the residual mastoid air cells. Left inner ear: Inner ear structures including the cochlea and semicircular canals are unremarkable. Left ossicles and middle ear: Stable opacification of the left middle ear cavity. The left middle ear ossicles are not identified in unchanged from prior exam. Left external auditory canal: Redemonstration of a wall down mastoidectomy with soft tissue filling the left external auditory canal. Left facial nerve canal: Normal. Left jugular foramen: No jugular dehiscence. Left carotid canal: No aberrant carotid canal. Left mastoid air cells: Redemonstration of left wall down mastoidectomy with soft tissue filling the mastoid bowl. CT/CT temporal bone wo con* [id number] IMPRESSION: 1. Improved partial opacification of the right middle ear with fluid extending through the aditus ad antrum into the residual right mastoid air cells. The right incus and malleus appear to be intact. The right stapes is not well seen. Recommend clinical correlation and follow-up imaging as clinically warranted. 2. Stable postsurgical changes at the left temporal bone when compared to prior CT dated 09/30/2024.
== END 2025-08-04 10:04 | disposition home or self-care (01) ==
LOC: RAD 10:03
PROVIDERS: Visit Provider Specialist
DX: H90.6 Mixed conductive and sensorineural hearing loss, bilateral (principal); H93.8X1 Other specified disorders of right ear; R93.0 Abnormal findings on diagnostic imaging of skull and head, not elsewhere classified; H95.192 Other disorders following mastoidectomy, left ear; Z98.890 Other specified postprocedural states; H90.A32 Mixed conductive and sensorineural hearing loss, unilateral, left ear with restricted hearing on the contralateral side; H74.8X3 Other specified disorders of middle ear and mastoid, bilateral
CPT/HCPCS: 70480